=== PATIENT | female | born 1990 | race Caucasian/White ===

== ENCOUNTER 2018-11-13 04:03 | Inpatient (IN) | payer OTHER ==
[2018-11-12 11:08] LABS: Urine Appearance CLEAR; Urine Bilirubin NEGATIVE (NEG); Urine Blood NEGATIVE (NEG); Urine Color YELLOW; Urine Glucose NEGATIVE (NEG); Urine Protein NEGATIVE (NEG)
[2018-11-12 11:11] LABS: Urine Microscopic Reflex NO UMIC
[2018-11-12 11:34] LABS: Absolute Lymphocytes (CBC) 2.6 K/uL (0.7-4.9); Basophils % 0.3 % (0-1.3); Hematocrit 35.7 % (36.0-45.0); Lymphocytes % 19.6 % (15.3-44.8); RBC Red Blood Cell Count 4.19 M/uL (3.86-4.86)
[2018-11-12 23:35] LABS: RPR (Rapid Plasma Reagin) NON-REACT (NON-REACT)
[2018-11-13] MEDS ORDERED: Ringers Lactate 1,000 ML IV PRN (04:06)
[2018-11-13] MEDS ORDERED: NA CIT/CITRIC AC 30 ML ORAL UDC PO ONE (04:29)
[2018-11-13 04:56] VITALS: BMI 37.9
[2018-11-13] MEDS ORDERED: METOCLOPRAMIDE 10 MG/2mL INJ IV SCH (05:00)
[2018-11-13] MEDS ORDERED: CEFAZOLIN 2 GM in NA CHLORIDE 0.9% 100 ML IVPB SCH (05:00)
[2018-11-13] MEDS ORDERED: Ringers Lactate 1,000 ML IV SCH (05:00)
[2018-11-13] MEDS ORDERED: CEFAZOLIN/SWI 2gm 2 GM/20 ML SYR ONE ×2 (06:45→16:10)
[2018-11-13] MEDS ORDERED: METHYLERGONOVINE 0.2MG/ML AMP IM ONE (07:03)
[2018-11-13] MEDS ORDERED: CARBOPROST TROME 250 MCG/ML IM ONE (07:03)
[2018-11-13] MEDS ORDERED: MORPHINE SULFATE/PF 1 MG/ML (10 ML AMP) ONE (07:05)
[2018-11-13] MEDS ORDERED: FENTANYL CITR 250 MCG/5 ML ONE (07:06)
[2018-11-13] MEDS ORDERED: OXYTOCIN 10 UNIT/ML ML IV ONE ×2 (07:21→08:02)
[2018-11-13] MEDS ORDERED: ONDANSETRON 4 MG/2 ML VIAL ONE (07:21)
[2018-11-13] MEDS ORDERED: NS 0.9% VIAL 20 ML ONE (07:23)
[2018-11-13] MEDS ORDERED: EPHEDRINE SULF 50 MG/ML VIAL ONE ×2 (07:23→07:52)
[2018-11-13] MEDS ORDERED: ONDANSETRON 4 MG (ODT) TAB PO PRN (08:13)
[2018-11-13] MEDS ORDERED: KETOROLAC 30 MG/ML INJ IV PRN (08:13)
[2018-11-13] MEDS ORDERED: DIPHENHYDRAMINE 25 MG TAB/CAP PO PRN (08:13)
[2018-11-13] MEDS ORDERED: ACETAMINOPHEN 500 MG TAB PO PRN ×2 (08:13)
[2018-11-13] MEDS ORDERED: ONDANSETRON 4 MG/2 ML VIAL IV PRN (08:13)
[2018-11-13] MEDS ORDERED: IBUPROFEN 200 MG TAB PO PRN (08:13)
[2018-11-13] MEDS ORDERED: BISACODYL 10 MG RECTAL SUPP RECT PRN (08:13)
[2018-11-13] MEDS ORDERED: CEFAZOLIN/SWI 1gm 1 GM/10 ML SYR IV SCH (08:30)
[2018-11-13] MEDS ORDERED: OXYTOCIN/LR 20 UNIT/1,000 ML BAG IV SCH (09:00)
[2018-11-13] MEDS ORDERED: D5LR 1,000 ML with OXYTOCIN 20 UNIT IV SCH ×2 (09:00)
[2018-11-13] MEDS ORDERED: FAMOTIDINE 20 MG/2 ML VIAL IV SCH (09:00)
--- NOTE | 2018-11-13 10:28 | PREOPHP ---
Date of Admission: 11/13/2018 History Of Present Illness: This is a 28-year-old, 2, para 1, for repeat section. Infection, blood loss, anesthetic complications, injury to bladder, bowel, ureter, postoperative comp lications, clots in legs, pneumonia discussed. The patient knows fully well this does not constitute all the possible problems that could occur during or following surgery and knows with each surgery t he risk of complications is higher. Family History: Father with hypertension. Mother with gallstones. Patient had a history of seizures after her first delivery. Blood pressures have been perfect this p regnancy, but we will monitor her carefully of course. Allergies: PATIENT HAS NO ALLERGIES. Medications: She has been taking vitamins. Social History: Does not smoke. Physical Examination: HEENT: Clear. Pupils are equal, round, and reactive to light and accommodation. Conjunctivae well perfused. No oral, lingual, or buccal lesions. Chest and Lungs: Clear. Heart: Without murmurs, thrills, heaves, or rubs. Breasts: Without masses on previous visits. Abdomen: Term size. Baby is vertex. Extremities: Clear without edema, cyanosis, or clubbing. Plan: We will proceed with repeat section on Tuesday. NOAH/FREDDY Voice ID: [id number]
--- NOTE | 2018-11-13 12:25 | PN ---
Postoperatively, patient had no lochia. Cervical os is almost pinpoint. Speculum was inserted. Maame culum was placed on the anterior cervical lip and before sound could be introduced there was spontane ous bleeding coming from the uterus. The sound, dilator was used no more than 4 to 5 mm and to ensur e good flow we now have good lochia. NOAH/FREDDY Voice ID: [id number] Report ID: [id number]
--- NOTE | 2018-11-13 18:52 | OP ---
Surgeon: Shravan Bansal MD Network Account Manager: Tavon Trimble M.D. Anesthesiologist: Dr. Gray and associates. Indications: A 28-year-old 2, para 1, for repeat section. Infection, blood loss, a nesthetic complications, injury to bladder, bowel, ureter, postoperative complications in her legs, p neumonia and other complications discussed. Patient knows fully well, this does not constitute all t he possible problems that could occur during or following surgery. Anesthesia: Spinal block anesthesia. Description Of Procedure: After prepping and draping, time-out was performed. A Pfannenstiel incisi on was created. The incision was carried to the fascia. The fascia was incised and incision carried transversely bilaterally. Anterior fascial plane was developed with both blunt and sharp dissection . The underlying rectus muscle was . Peritoneal defect was seen and entered. Low transvers e bladder flap developed. Low transverse uterine incision created. An estimated 8-pound male infant , delivered through the incision without difficulties, his Apgars 9 and 9. Cord blood specimen was o btained. Placenta was removed manually. Uterus cleared of clot and blood and exteriorized. Cervica l os dilated with ring clamp. Uterus mildly hypotonic, 0.2 mg of Methergine IM. Estimated blood los s during procedure 1000 cc. Uterus clamped and closed with a running locked stitch of 1 chromic, fol lowed by a single [id number] stitch in the right angle for complete hemostasis. Gutters clear o f clot and blood. Uterus was replaced in the peritoneal cavity. Suture line checked again, no furth er bleeding. Rectus muscles approximated with 0 Dexon 3 interrupted sutures. Fascia closed with 1 P DS, running from either angle to the midline. Subcutaneous tissue closed with 2-0 plain. Absorbable tammi placed and then metal tammi. Patient tolerated all procedures well. She was given 2 g of Ancef prophylaxis prior to the beginning of the procedure. Final Diagnoses: Term intrauterine . Repeat section. Mild uterine hypotonus. NOAH/FREDDY Voice ID: [id number] Report ID: [id number]
--- NOTE | 2018-11-14 07:42 | PN ---
28-year-old underwent repeat section with delivery of 8-pound 3-ounce male . Postoper atively, afebrile, ambulating. Lochia is normal. At first, there was some difficulty with lochia. She was dilated and then we started seeing lochia. H and H with actual increase indicating probably dehydration. We will hydrate today. No complaints this morning. Full postoperative talk given. If all goes well, we will send her home tomorrow. Had mild pruritus, but no other postspinal block pro blems. Doing well at this point. NOAH/FREDDY Voice ID: [id number] Report ID: [id number]
[2018-11-14] MEDS ORDERED: MAGNESIUM HYDROXIDE 8% 30 ML PO PRN (08:13)
[2018-11-14] MEDS: Oxycodone HCl/Acetaminophen 1 TAB TAB PO PRN ×2 (08:24→19:25)
[2018-11-14] MEDS: KETOROLAC 30 MG/ML INJ IM PRN (12:13)
[2018-11-15] MEDS: KETOROLAC 30 MG/ML INJ IM PRN (01:03)
[2018-11-15] MEDS ORDERED: Ringers Lactate 2,000 ML IV ONE (07:14)
[2018-11-15 07:32] VITALS: BP 117/64; TEMP 97.9
[2018-11-15 13:19] LABS: HBsAG Nonreactive (Nonreactive)
--- NOTE | 2018-11-17 08:16 | DS ---
Date of Discharge: 11/15/2018 Hospital Course: 28-year-old 2, para 1, repeat section at 39 weeks. Delivery of an 8 pounds, 3 ounce male infant, Apgars 9 and 9. Spinal block anesthesia. Low transverse uterine inc ision. Mild uterine hypotonus, 0.2 mg of Methergine IM given. it was noted patient had m inimal lochia. She was dilated in her room and lochia begin to flow at that point and has been afia l since then. She has been afebrile, ambulating, voiding. No post spinal block problems. Patient i s dismissed this morning to report back to my office next week for staple removal to report any tempe rature elevation of 100 degrees or greater, severe pain, heavy bleeding, or any other type of abnorma lity, dismissed with tramadol for analgesia, although she may elect to take Motrin instead. Tdap has been given during her and flu shot is offered through my office if she requests since it i s not available yet in the hospital. Final Diagnoses: Term intrauterine . Repeat section at 39 weeks. Mild uterine hy pertonicity. Final block anesthesia. Cervical dilation. NOAH/FREDDY Voice ID: [id number] Report ID: [id number]
== END 2018-11-15 09:15 | disposition home or self-care (01) | DRG 788 ==
LOC: 2ND-WC 04:03
PROVIDERS: ADMIT Specialist; ATTEND Specialist
PROC: 10D00Z1 Extraction of Products of Conception, Low, Open Approach (ICD-10-PCS; principal; 2018-11-13 07:10)
DX: O62.2 Other uterine inertia (principal); Z3A.39 39 weeks gestation of pregnancy; Z37.0 Single live birth
CPT/HCPCS: 36415; 81003; 85014; 85025; 85730; 86592; 86900; 86901; 87340; 88307; J0690; J2210; J2405; J2590; J2765; J3010

== ENCOUNTER 2021-09-16 17:12 | Inpatient (IN) | payer OTHER ==
[2021-09-16 18:24] LABS: Urine Blood Negative (Negative); Urine Glucose Negative (Negative); Urine Protein 1+ (Negative); Urine pH 7.5 (5.0-7.0)
[2021-09-16 18:35] LABS: Absolute Lymphocytes (CBC) 4.5 K/uL (0.7-4.9); Hematocrit 41.6 % (36.0-45.0); MCV 81.6 fL (80-100); MPV 7.2 fL (7.6-11.3)
[2021-09-16 18:43] LABS: Albumin 3.6 g/dL (3.4-5.0); Bilirubin Total 0.8 mg/dL (0.2-1.0); Potassium 3.4 mmol/L (3.5-5.1); Protein, Total 7.9 g/dL (6.4-8.2)
[2021-09-16 19:08] LABS: Urine Bacteria >50 /HPF (<20); Urine RBC <5 /HPF (None Seen)
--- NOTE | 2021-09-16 20:07 | RAD REPORT ---
EXAM DESCRIPTION: CTAbdomen Pelvis W Contrast - 09/16/2021 7:54 pm CLINICAL HISTORY: Abdominal pain. Epigastric pain COMPARISON: No comparisons TECHNIQUE: Biphasic CT imaging of the abdomen and pelvis was performed with 100 ml non-ionic IV cont rast. All CT scans are performed using dose optimization technique as appropriate and may include automated exposure control or mA/KV adjustment according to patient size. FINDINGS: The lung bases are clear. The liver, spleen, pancreas, adrenal glands and kidneys are within normal limits. No bowel obstruction, free air, free fluid or abscess. Small fat containing umbilical hernia. The blair endix is normal. No evidence of significant lymphadenopathy. No suspicious bony findings. IMPRESSION: No acute intra-abdominal or pelvic finding.
[2021-09-16] MEDS ORDERED: ONDANSETRON 4 MG/2 ML VIAL ONE (20:12)
[2021-09-16] MEDS ORDERED: MORPHINE 4 MG/ML SYR ONE ×2 (20:12→22:57)
[2021-09-16] MEDS ORDERED: CEFTRIAXONE 1000 MG/VIAL ONE (20:59)
[2021-09-16] MEDS ORDERED: NA CHLORIDE 0.9% 50 ML ONE (20:59)
--- NOTE | 2021-09-16 21:46 | RAD REPORT ---
EXAM DESCRIPTION: US - Abdomen Exam Limited - 09/16/2021 9:40 pm CLINICAL HISTORY: abdominal pain COMPARISON: No comparisons FINDINGS: The gallbladder demonstrates stones and significant sludge. Gallbladder wall is slightly t hickened measuring arm. The common bile duct is normal measuring 4 mm. The liver demonstrates no findings of intrahepatic biliary dilatation. IMPRESSION: Gallbladder stones and sludge with mild wall thickening.
[2021-09-16] MEDS ORDERED: NA CHLORIDE 0.9% 100 ML ONE (22:25)
[2021-09-16] MEDS ORDERED: PIPERACIL/TAZO 3.375 GM VIAL IV ONE (22:25)
--- NOTE | 2021-09-16 22:43 | EDPHYS ---
Physician Documentation [facility] Name: Petrona Kam Age: 31 yrs Sex: Female : 1990 Arrival Date: 09/16/2021 Time: 17:14 Bed 20 Private MD: ED Physician Denilson Murguia HPI: 09/16 18:00 This 31 yrs old Female presents to ER via Ambulatory with complaints of Flank Pain - cp right side, Abdominal Pain - RUQ. 18:00 The patient complains of pain in the right flank. Onset: The symptoms/episode cp began/occurred today. 18:00 Associated signs and symptoms: Pertinent positives: nausea, Pertinent negatives: cp diarrhea, fever, hematuria, pain radiating to the lower extremities, vomiting. Severity of pain: in the emergency department the pain is unchanged despite home interventions. 18:00 The patient has experienced a previous episode, last year, was told gallbladder is the cp cause. Historical: - Allergies: 17:50 NKDA; bh1 - Home Meds: 17:50 propranolol 10 mg Oral tab 1 tab 3 times per day [Active]; Lexapro 10 mg Oral tab 1 tab bh1 once daily [Active]; - PMHx: 17:50 Anxiety; Depressive disorder; bh1 - PSHx: 17:51 section; bh1 - Immunization history:: Adult Immunizations up to date. - Social history:: Smoking status: Reported history of juuling and/or vaping. ROS: 18:05 Constitutional: Negative for body aches, chills, fever, poor PO intake. cp 18:05 Eyes: Negative for injury, pain, redness, and discharge. cp 18:05 ENT: Negative for drainage from ear(s), ear pain, sore throat, difficulty swallowing, difficulty handling secretions. 18:05 Cardiovascular: Negative for chest pain, edema, palpitations. 18:05 Respiratory: Negative for cough, shortness of breath, wheezing. 18:05 Abdomen/GI: Positive for abdominal pain, nausea, of the epigastric area and right upper quadrant, Negative for vomiting, diarrhea, constipation. 18:05 Back: Positive for flank pain, on the right. 18:05 : Negative for urinary symptoms. 18:05 Skin: Negative for cellulitis, rash. 18:05 Neuro: Negative for altered mental status, dizziness, headache, syncope, weakness. 18:05 All other systems are negative. Exam: 18:10 Constitutional: The patient appears in no acute distress, alert, awake, cp non-diaphoretic, non-toxic, well developed, well nourished, uncomfortable. 18:10 Head/Face: Normocephalic, atraumatic. cp 18:10 Eyes: Periorbital structures: appear normal, Conjunctiva: normal, no exudate, no injection, Sclera: no appreciated abnormality, Lids and lashes: appear normal, bilaterally. 18:10 ENT: External ear(s): are unremarkable, Nose: is normal, Mouth: Lips: moist, Oral mucosa: moist, Posterior pharynx: Airway: no evidence of obstruction, patent. 18:10 Chest/axilla: Inspection: normal. 18:10 Cardiovascular: Rate: normal, Rhythm: regular, Edema: is not appreciated, JVD: is not appreciated. 18:10 Respiratory: the patient does not display signs of respiratory distress, Respirations: normal, no use of accessory muscles, no retractions, labored breathing, is not present, Breath sounds: are clear throughout, no decreased breath sounds, no stridor, no wheezing. 18:10 Abdomen/GI: Inspection: abdomen appears normal, Bowel sounds: active, all quadrants, Palpation: soft, in all quadrants, severe abdominal tenderness, in the epigastric area and right upper quadrant, rebound tenderness, is not appreciated, voluntary guarding, is elicited in the epigastric area and right upper quadrant. 18:10 Back: CVA tenderness, is absent. 18:10 Skin: cellulitis, is not appreciated, no rash present. 18:10 Neuro: Orientation: to person, place \T\ time. Mentation: is normal, Motor: moves all fours, strength is normal, Sensation: is normal, Gait: is steady. Vital Signs: 17:48 BP 133 / 95; Pulse 82; Resp 20; Temp 98.8; Pulse Ox 97% on R/A; Weight 106.14 kg; bh1 Height 5 ft. 7 in. (170.18 cm); Pain 10/10; 22:00 BP 130 / 84; Pulse 52; Resp 18; Pulse Ox 97% on R/A; sm5 23:15 BP 134 / 98; Pulse 68; Resp 17; Pulse Ox 96% on R/A; sm5 09/17 00:43 BP 116 / 97; Pulse 48; Resp 17; Pulse Ox 97% on R/A; 5 09/16 17:48 Body Mass Index 36.65 (106.14 kg, 170.18 cm) bh1 MDM: 09/16 19:19 Patient medically screened. [facility] 22:00 Data reviewed: vital signs, nurses notes, lab test result(s), radiologic studies, CT cp scan, plain films. 22:00 Counseling: I had a detailed discussion with the patient and/or guardian regarding: the cp historical points, exam findings, and any diagnostic results supporting the discharge/admit diagnosis, lab results, radiology results, the need for further work-up and treatment in the hospital. Response to treatment: the patient's symptoms have markedly improved after treatment. Physician consultation: Gerry Lee MD was called at 21:50, was contacted at 21:50, regarding consult, patient's condition. 09/16 17:54 Order name: CBC with Diff; Complete Time: 20:45 cp 09/16 20:45 Interpretation: Normal except: WBC 11.6; RBC 5.10; MCV 81.6; PLT 412; MPV 7.2. 09/16 17:54 Order name: CMP; Complete Time: 20:45 cp 09/16 20:46 Interpretation: Normal except: K 3.4; CL 110; CO2 18; ANION GAP 15.4; GLUC 109; GFR 70; cp AST 38; GLOB 4.3; A/G 0.8. 09/16 17:54 Order name: Lipase; Complete Time: 20:45 cp 09/16 17:54 Order name: Urine Microscopic Only; Complete Time: 20:45 cp 09/16 20:46 Interpretation: Abnormal: UBACT >50. 09/16 18:24 Order name: Urine Dipstick-Ancillary; Complete Time: 20:45 EDMS 09/16 20:46 Interpretation: Normal except: UKET Trace; UPH 7.5; UPROT 1+. 09/16 18:25 Order name: Urine --Ancillary (enter results); Complete Time: 20:45 dh3 09/16 17:54 Order name: CT Abd/Pelvis - IV Contrast Only; Complete Time: 20:45 cp 09/16 19:11 Order name: Urine Culture EDCT 09/16 20:48 Order name: US Abdomen Limited: RUQ/epigastric; Complete Time: 21:50 cp 09/16 21:50 Interpretation: Report reviewed. cp 09/16 22:47 Order name: SARS RAPID sm5 09/16 17:54 Order name: IV Saline Lock; Complete Time: 18:16 cp 09/16 17:54 Order name: Labs collected and sent; Complete Time: 18:16 cp 09/16 17:54 Order name: Urine Dipstick-Ancillary (obtain specimen); Complete Time: 18:25 cp 09/16 17:54 Order name: Urine Test (obtain specimen); Complete Time: 18:25 cp 09/16 20:48 Order name: NPO; Complete Time: 20:55 cp Administered Medications: 20:10 Drug: Zofran (Ondansetron) 4 mg Route: IVP; Site: left antecubital; 5 20:10 Drug: morphine 4 mg Route: IVP; Infused Over: 4 mins; Site: left antecubital; 5 23:41 Follow up: Response: No adverse reaction; RASS: Alert and Calm (0) 5 20:56 Drug: Rocephin - (cefTRIAXone) 1 grams Route: IVPB; Infused Over: 30 mins; Site: left 5 antecubital; 21:15 Follow up: IV Status: Completed infusion; IV Intake: 50ml 5 22:25 Drug: Zosyn (piperacillin-tazobactam) 3.375 grams Route: IVPB; Infused Over: 60 mins; 5 Site: left antecubital; 23:30 Follow up: Response: No adverse reaction; IV Status: Completed infusion; IV Intake: sm5 100ml 23:00 Drug: morphine 4 mg Route: IVP; Infused Over: 4 mins; Site: left antecubital; 5 09/17 01:25 Follow up: Response: No adverse reaction; RASS: Alert and Calm (0) 5 Disposition Summary: 09/16/21 22:42 Hospitalization Ordered Hospitalization Status: Inpatient Admission cp Provider: Jesenia Terry cp Location: Telemetry/MedSurg (Inpatient) cp Condition: Stable cp Problem: new cp Symptoms: have improved cp Bed/Room Type: Standard Room Assignment: 228(09/17/21 00:22) cg Diagnosis - Acute cholecystitis cp Forms: - Medication Reconciliation Form cp - SBAR form cp Signatures: Dispatcher [employer] EDDenilson Coleman MD MD cha Page, Corey, PA PA cp Garcia, Cindy, RN RN cg Mazur, Sarah, RN RN Starla Singh RN RN [facility] Corrections: (The following items were deleted from the chart) 09/16 17:52 17:51 Social history: Smoking status: Patient denies any tobacco usage or history of. [place] [id number] 09/17 00:22 09/16 22:42 cp cg
--- NOTE | 2021-09-16 22:43 | ER ---
Nurse's Notes [facility] Name: Petrona Kam Age: 31 yrs Sex: Female : 1990 Arrival Date: 09/16/2021 Time: 17:14 Bed 20 Private MD: Diagnosis: Acute cholecystitis Presentation: 09/16 17:48 Chief complaint: Patient states: PATIENT REPORTS SEVERE AZAR IN HER RIGHT UPPER STOMACH bh1 THAT STARTED ABOUT 1 HOUR AGO. SHE ADMITS TO THIS OCCURRING LAST YEAR AND IT WAS HER GALL BLADDER. Coronavirus screen: Vaccine status: Patient reports being unvaccinated. At this time, the client does not indicate any symptoms associated with coronavirus-19. Ebola Screen: Patient negative for fever greater than or equal to 101.5 degrees Fahrenheit, and additional compatible Ebola Virus Disease symptoms. Initial Sepsis Screen: Does the patient meet any 2 criteria? No. Patient's initial sepsis screen is negative. Does the patient have a suspected source of infection? No. Patient's initial sepsis screen is negative. Risk Assessment: Do you want to hurt yourself or someone else? Patient reports no desire to harm self or others. Onset of symptoms was September 16, 2021. 17:48 Method Of Arrival: Ambulatory [facility] 17:48 Acuity: WENDY 3 1 Triage Assessment: 17:51 General: Appears in no apparent distress. Behavior is calm, cooperative, appropriate bh1 for age. General: Appears uncomfortable. Pain: Complains of pain in right upper quadrant. GI: No deficits noted. Historical: - Allergies: 17:50 NKDA; 1 - Home Meds: 17:50 propranolol 10 mg Oral tab 1 tab 3 times per day [Active]; Lexapro 10 mg Oral tab 1 tab bh1 once daily [Active]; - PMHx: 17:50 Anxiety; Depressive disorder; 1 - PSHx: 17:51 section; 1 - Immunization history:: Adult Immunizations up to date. - Social history:: Smoking status: Reported history of juuling and/or vaping. Screenin:39 Abuse screen: Denies threats or abuse. Denies injuries from another. Nutritional sm5 screening: No deficits noted. Tuberculosis screening: No symptoms or risk factors identified. Fall Risk None identified. Assessment: 20:15 General: Appears in no apparent distress. Behavior is cooperative. Pain: Complains of sm5 pain in right upper quadrant. Neuro: Level of Consciousness is awake, alert, obeys commands, Oriented to person, place, time, situation. Cardiovascular: Capillary refill < 3 seconds Patient's skin is warm and dry. Respiratory: Airway is patent Trachea midline Respiratory effort is even, unlabored. GI: Bowel sounds present X 4 quads. Abd is soft Reports upper abdominal pain. 22:00 Reassessment: No changes from previously documented assessment. Patient and/or family 5 updated on plan of care and expected duration. Pain level reassessed. 09/17 00:43 Reassessment: No changes from previously documented assessment. Patient is alert, sm5 oriented x 3, equal unlabored respirations, skin warm/dry/pink. Vital Signs: 09/16 17:48 BP 133 / 95; Pulse 82; Resp 20; Temp 98.8; Pulse Ox 97% on R/A; Weight 106.14 kg; 1 Height 5 ft. 7 in. (170.18 cm); Pain 10/10; 22:00 BP 130 / 84; Pulse 52; Resp 18; Pulse Ox 97% on R/A; sm5 23:15 BP 134 / 98; Pulse 68; Resp 17; Pulse Ox 96% on R/A; sm5 09/17 00:43 BP 116 / 97; Pulse 48; Resp 17; Pulse Ox 97% on R/A; sm5 09/16 17:48 Body Mass Index 36.65 (106.14 kg, 170.18 cm) [facility] ED Course: 09/16 17:14 Patient arrived in ED. am2 17:20 Denilson Avendano PA is PHCP. cp 17:20 Denilson Murguia MD is Attending Physician. cp 17:50 Triage completed. 1 17:52 Arm band placed on left wrist. 1 18:14 Initial lab(s) drawn, by me, sent to lab. Inserted saline lock: 20 gauge in left dh3 antecubital area, using aseptic technique. Blood collected. 19:45 Kellen Patel, AMBERLY is Primary Nurse. 5 19:56 CT Abd/Pelvis - IV Contrast Only In Process Unspecified. EDMS 21:43 US Abdomen Limited: RUQ/epigastric In Process Unspecified. EDMS 22:42 Jesenia Terry PA is Hospitalizing Provider. cp 23:40 Patient has correct armband on for positive identification. Bed in low position. Call 5 light in reach. Side rails up X2. 23:40 No provider procedures requiring assistance completed. 5 09/17 01:24 Patient admitted, IV remains in place. 5 Administered Medications: 09/16 20:10 Drug: Zofran (Ondansetron) 4 mg Route: IVP; Site: left antecubital; 5 20:10 Drug: morphine 4 mg Route: IVP; Infused Over: 4 mins; Site: left antecubital; 5 23:41 Follow up: Response: No adverse reaction; RASS: Alert and Calm (0) [facility] 20:56 Drug: Rocephin - (cefTRIAXone) 1 grams Route: IVPB; Infused Over: 30 mins; Site: left 5 antecubital; 21:15 Follow up: IV Status: Completed infusion; IV Intake: 50ml 5 22:25 Drug: Zosyn (piperacillin-tazobactam) 3.375 grams Route: IVPB; Infused Over: 60 mins; 5 Site: left antecubital; 23:30 Follow up: Response: No adverse reaction; IV Status: Completed infusion; IV Intake: sm5 100ml 23:00 Drug: morphine 4 mg Route: IVP; Infused Over: 4 mins; Site: left antecubital; 5 09/17 01:25 Follow up: Response: No adverse reaction; RASS: Alert and Calm (0) [facility] Medication: 09/16 23:39 VIS not applicable for this client. 5 Intake: 21:15 IV: 50ml; Total: 50ml. 5 23:30 IV: 100ml; Total: 150ml. 5 Outcome: 22:42 Decision to Hospitalize by Provider. cp 09/17 01:24 Admitted to Med/surg accompanied by tech, via wheelchair, with chart. 5 Condition: stable Instructed on the need for admit. 01:25 Patient left the ED. 5 Signatures: Dispatcher [employer] EDMS Denilson Avendano PA PA cp Rosa Horta Deanna 3 Kellen Patel RN RN 5 Starla Caputo RN RN 1 Corrections: (The following items were deleted from the chart) 09/16 17:52 17:51 Social history: Smoking status: Patient denies any tobacco usage or history of. 1 bh1
--- NOTE | 2021-09-16 23:14 | P.HP ---
Certification for Inpatient Patient admitted to: Inpatient With expected LOS: <2 Midnights Patient will require the following post-hospital care: None Practitioner: I am a practitioner with admitting privileges, knowledge of patient current condition, hospital course, and medical plan of care. Services: Services provided to patient in accordance with Admission requirements found in Title 42 Section 412.3 of the Code of Federal Regulations Patient History Date of Service: 09/16/21 Reason for admission: Cholecystitis History of Present Illness: Patient is a 31-year-old female with no chronic medical problems who presented to the ED with complaints of right upper quadrant pain. She states that the pain initially began 3 days ago but subsided with rest then returned today. She states the pain is associated with nausea, vomiting, and decreased appetite. Patient reports similar symptoms about 1 year ago which was evaluated via ultrasound and she was noted to have gallstones and sludge but no infection. Today in the ED, her labs are significant for WBC 11.6, potassium 3.4, AST 38. RUQ ultrasound showed gallstones and sludge with mild wall thickening. Vital signs stable. General surgery was contacted and wishes for patient to be admitted to hospitalist and to receive antibiotics for 24 hours and he plans to operate on Tuesday morning. She was started on Zosyn in the ED and is admitted for further evaluation and treatment. Allergies No Known Allergies Allergy (Unverified 11/13/18 08:20) Home Medications: 95/Iron Fum/Folic/Dha [ + Dha Combo Pack] 1 each PO DAILY 11/13/18 Tramadol HCl [Ultram] 50 mg PO Q6HR #30 tablet 11/15/18 - Past Medical/Surgical History Diabetic: No -: Depression -: Anxiety -: section 2008 Psychosocial/ Personal History: Patient is . - Family History Family History: Reviewed- Non-Contributory - Social History Smoking Status: Current some day smoker (vapes) Alcohol use: No CD- Drugs: No Caffeine use: Yes Place of Residence: Home Review of Systems Gastrointestinal: Nausea, Vomiting, Abdominal Pain Physical Examination - Physical Exam General: Alert, In no apparent distress HEENT: Atraumatic, PERRLA, EOMI, Sclerae nonicteric Neck: Supple, 2+ carotid pulse no bruit, No LAD, Without JVD or thyroid abnormality Respiratory: Clear to auscultation bilaterally, Normal air movement Cardiovascular: Regular rate/rhythm, Normal S1 S2 Gastrointestinal: Normal bowel sounds, No tenderness Musculoskeletal: No tenderness Integumentary: No rashes Neurological: Normal speech, Normal strength at 5/5 x4 extr, Normal tone, Normal affect - Studies Laboratory Data (last 24 hrs) 09/16/21 18:14: Sodium 140, Potassium 3.4 L, BUN 10, Creatinine 1.07, Glucose 109 H, Total Bilirubin 0.8, AST 38 H, ALT 53, Alkaline Phosphatase 61, Lipase 106 09/16/21 18:14: WBC 11.6 H, Hgb 14.1, Hct 41.6, Plt Count 412 H Assessment and Plan - Problems (Diagnosis) (1) Acute cholecystitis Current Visit: Yes Status: Acute (2) Hypokalemia Current Visit: Yes Status: Acute (3) UTI (urinary tract infection) Current Visit: Yes Status: Acute Qualifiers: Urinary tract infection type: acute cystitis Hematuria presence: without hematuria Qualified Code(s): N30.00 - Acute cystitis without hematuria - Plan -Continue IV zosyn and LR -Morphine and zofran as needed -Diet as tolerated for now. NPO 09/18 at [facility] -General surgery planning to operate Tuesday morning -Monitor and replete electrolytes per protocol -Lovenox for VTE ppx -Full code Discharge Plan: Home Plan to discharge in: 48 Hours - Advance Directives Does patient have a Living Will: No Does patient have a Durable POA for Healthcare: No - Code Status/Comfort Care Code Status Assessed: Yes (Full) Critical Care: No Time Spent Managing Pts Care (In Minutes): 50
[2021-09-16 23:24] LABS: SARS-CoV-2 Antigen Rapid Res Negative (Negative)
[2021-09-17] MEDS ORDERED: ACETAMINOPHEN 500 MG TAB PO PRN (00:59)
[2021-09-17 01:31] VITALS: BMI 35.6
[2021-09-17] MEDS: ONDANSETRON 4 MG/2 ML VIAL IV PRN ×3 (01:52→22:50)
[2021-09-17 04:11] LABS: Absolute Lymphocytes (CBC) 3.4 K/uL (0.7-4.9); Lymphocytes % 29.6 % (15.3-44.8); MPV 7.3 fL (7.6-11.3); RBC Red Blood Cell Count 4.34 M/uL (3.86-4.86)
[2021-09-17 04:40] LABS: Albumin 3.2 g/dL (3.4-5.0); Bilirubin Total 0.8 mg/dL (0.2-1.0); Magnesium 1.9 mg/dL (1.8-2.4); Protein, Total 6.7 g/dL (6.4-8.2); Thyroid Stimulating Hormone 2.55 uIU/mL (0.360-3.740)
[2021-09-17] MEDS ORDERED: POTASSIUM 25 MEQ EFFERV TAB PO ONE (06:00)
[2021-09-17] MEDS: ENOXAPARIN 40 MG/0.4 ML SQ SCH (09:07)
[2021-09-17] MEDS: PIPER TAZO 3.375 GM in NA CHLORIDE 0.9% 100 ML IV SCH ×2 (09:07→17:25)
[2021-09-17 12:23] LABS: Potassium 3.5 mmol/L (3.5-5.1)
[2021-09-17] MEDS ORDERED: POTASSIUM CL SA 10 MEQ TAB PO ONE (12:42)
--- NOTE | 2021-09-17 13:48 | P.PN ---
Subjective Date of Service: 09/17/21 Chief Complaint: Cholecystitis Subjective: Improving (Patient is improving still complaining of right upper quadrant pain pending surgical eval) Review of Systems Unremarkable Physical Examination - Vital Signs Temperature: 97.7 F Blood Pressure: 131/61 Pulse: 57 Respirations: 16 Pulse Ox (%): 97 - Physical Exam General: Alert, In no apparent distress, Oriented x3 Respiratory: Clear to auscultation bilaterally Cardiovascular: No edema Gastrointestinal: Normal bowel sounds, Tenderness (Mild tenderness in the right upper quadrant) Musculoskeletal: No clubbing, No swelling - Studies Laboratory Data (last 24 hrs) 09/16/21 18:14: Sodium 140, Potassium 3.4 L, BUN 10, Creatinine 1.07, Glucose 109 H, Total Bilirubin 0.8, AST 38 H, ALT 53, Alkaline Phosphatase 61, Lipase 106 09/16/21 18:14: WBC 11.6 H, Hgb 14.1, Hct 41.6, Plt Count 412 H Assessment And Plan - Current Problems (Diagnosis) (1) Acute cholecystitis Current Visit: Yes Status: Acute Plan: Patient is 31 years of age admitted with right upper quadrant pain pain is recurrent admitted with acute cholecystitis awaiting surgical evaluation patient appears to be comfortable continue with Unasyn White count is stable
[2021-09-18] MEDS: PIPER TAZO 3.375 GM in NA CHLORIDE 0.9% 100 ML IV SCH ×3 (00:33→16:45)
[2021-09-18] MEDS: MORPHINE 4 MG/ML SYR IV PRN ×3 (03:36→20:13)
[2021-09-18 04:19] LABS: Absolute Lymphocytes (CBC) 3.5 K/uL (0.7-4.9); Lymphocytes % 33.9 % (15.3-44.8); MCV 82.3 fL (80-100); MPV 7.3 fL (7.6-11.3); RBC Red Blood Cell Count 4.62 M/uL (3.86-4.86)
[2021-09-18 04:30] LABS: Albumin 3.4 g/dL (3.4-5.0); Bilirubin Total 1.6 mg/dL (0.2-1.0); Magnesium 2.2 mg/dL (1.8-2.4); Potassium 3.4 mmol/L (3.5-5.1); Protein, Total 7.1 g/dL (6.4-8.2)
[2021-09-18] MEDS: KCL 20 MEQ/100 mL IVPB 20 MEQ/100 ML BAG IV SCH ×2 (07:44→10:40)
[2021-09-18] MEDS: ONDANSETRON 4 MG/2 ML VIAL IV PRN ×3 (07:44→20:13)
[2021-09-18] MEDS: ENOXAPARIN 40 MG/0.4 ML SQ SCH (07:45)
[2021-09-18] MEDS ORDERED: NA CHLORIDE 0.9% 1,000 ML ONE (09:36)
--- NOTE | 2021-09-18 10:08 | P.CNS ---
Date of Consult: 09/17/21 Reason for Consult: acut cholecystitis, sympt cholelithiasis Chief Complaint: Cholecystitis History of Present Illness: Recurrent RUQ apin radiating to the back, post prandial Allergies No Known Allergies Allergy (Verified 09/17/21 01:32) Home Medications: Escitalopram [Lexapro*] 20 mg PO DAILY 09/17/21 Propranolol HCl 20 mg PO DAILY 09/17/21 - Past Medical/Surgical History Diabetic: No -: Depression -: Anxiety -: section 2008 Psychosocial/ Personal History: Patient is . - Family History Mother Notes: gallbladder out - Social History Alcohol use: No CD- Drugs: No Caffeine use: Yes Place of Residence: Home Review of Systems General: Unremarkable Respiratory: Unremarkable Cardiovascular: Unremarkable Gastrointestinal: Nausea, Vomiting, Abdominal Pain Genitourinary: Unremarkable Integumentary: Unremarkable Neurological: Unremarkable Physical Examination Temp Pulse Resp BP Pulse Ox 98.1 F 69 18 142/86 H 100 09/18/21 08:00 09/18/21 08:00 09/18/21 08:00 09/18/21 08:00 09/18/21 08:00 General: Alert, Oriented x3 HEENT: PERRLA, EOMI Neck: Supple Respiratory: Normal air movement Cardiovascular: No edema Gastrointestinal: No guarding, Tenderness (RUQ) Musculoskeletal: No erythema Integumentary: No rashes, No breakdown, No erythema Neurological: Normal speech Conclusions/Impression: BAR of Laparoscopic possible open cholecystectomy fully explained including but not limited to infection, bleedig damage to adjacent structures, choledocholithiasis, bile leak, pancreatitis HI even .
[2021-09-18] MEDS ORDERED: NA CHLORIDE 0.9% 250 ML ONE (11:49)
[2021-09-18] MEDS ORDERED: Ringers Lactate 1,000 ML IV ONE ×2 (12:17→14:14)
[2021-09-18] MEDS ORDERED: dexAMETHasone 10 MG/ML VIAL ONE (12:32)
[2021-09-18] MEDS ORDERED: ROCURONIUM 50 MG/5 ML VIAL IV ONE (12:32)
[2021-09-18] MEDS ORDERED: ONDANSETRON 4 MG/2 ML VIAL ONE ×2 (12:32→14:09)
[2021-09-18] MEDS ORDERED: LIDOCAINE 2% MPF 5 ML VIAL ONE (12:32)
[2021-09-18] MEDS ORDERED: MIDAZOLAM HCL 2 MG/2 ML INJ ONE (12:32)
[2021-09-18] MEDS ORDERED: FENTANYL CITR 100 MCG/2 ML ONE ×2 (12:32→14:13)
[2021-09-18] MEDS ORDERED: KETOROLAC 30 MG/ML INJ ONE (12:32)
[2021-09-18] MEDS ORDERED: propofoL 200 MG/20 ML VIAL IV ONE (12:32)
[2021-09-18] MEDS ORDERED: SCOPOLAMINE HYDROBROMIDE PATCH TD ONE (12:35)
--- NOTE | 2021-09-18 12:47 | P.PN ---
Subjective Date of Service: 09/18/21 Chief Complaint: Cholecystitis Subjective: Improving (Still complaining of right upper quadrant pain scheduled for cholecystectomy) Review of Systems Gastrointestinal: Nausea, Abdominal Pain Physical Examination - Vital Signs Temperature: 98.1 F Blood Pressure: 142/86 Pulse: 69 Respirations: 18 Pulse Ox (%): 100 - Physical Exam General: Alert, In no apparent distress, Mild distress Respiratory: Clear to auscultation bilaterally Gastrointestinal: Tenderness (In the right upper quadrant) Assessment And Plan - Current Problems (Diagnosis) (1) Acute cholecystitis Current Visit: Yes Status: Acute Plan: Patient 31 years of age admitted with acute cholecystitis scheduled for cholecystectomy today labs reviewed white count is normal vital signs stable continue with present therapy
--- NOTE | 2021-09-18 13:35 | P.BOP ---
Preoperative diagnosis: acute cholecystitis, symptomatic cholelithiasis, RUQ abd pain Postoperative diagnosis: same, umbilical hernia Primary procedure: 1. Laparoscopic cholecystectomy Secondary procedure: 2. open umbilical hernia repair Sewer Repairer: Saniya Calvin) Estimated blood loss: <10cc Specimen: GB Findings: inflammed distended gallbladder Anesthesia: General Complications: None Drain(s): MCKINLEY drain Transferred to: Recovery Room Condition: Good
[2021-09-18] MEDS ORDERED: GLYCOPYRROLATE 0.2 MG/ML SYR ONE (13:36)
[2021-09-18] MEDS ORDERED: MORPHINE 10 MG/ML VIAL ONE (13:36)
[2021-09-18] MEDS ORDERED: NEOSTIGMINE 1 MG/ML -10 ML VIAL ONE (13:42)
[2021-09-18] MEDS ORDERED: Mastisol Adhesive Liq ONE (13:43)
[2021-09-18] MEDS: HYDROMORPHONE HCL 1 MG/ML INJ ONE ×2 (14:02→14:08)
[2021-09-18] MEDS: MEPERIDINE HCL 25 MG/ML SYR ONE ×2 (14:13→14:18)
[2021-09-18] MEDS: HYDROCODONE/APAP 5/325 MG TAB PO PRN (16:19)
[2021-09-19] MEDS: PIPER TAZO 3.375 GM in NA CHLORIDE 0.9% 100 ML IV SCH ×2 (01:15→09:03)
--- NOTE | 2021-09-19 02:54 | OP ---
Date of Procedure: 09/18/2021 Surgeon: Gerry Lee MD Simulation Technician: Saniya Glynn. Preoperative Diagnoses: Acute cholecystitis; symptomatic cholelithiasis; right upper quadrant abdomi nal pain, intractable. Postoperative Diagnoses: Acute cholecystitis; symptomatic cholelithiasis; right upper quadrant abdom inal pain, intractable; umbilical hernia. Procedures: 1.Laparoscopic cholecystectomy. 2.Open repair of umbilical hernia. Estimated Blood Loss: Less than 10 cc. Specimen: Gallbladder. Findings: Inflamed distended gallbladder. Anesthesia: General plus local. Complications: None. Drains: MCKINLEY #10. Indication: This is the case of a 31-year-old patient, who came to us with above diagnoses. Fully e xplained the benefits, alternatives, and risks of laparoscopic possible open cholecystectomy, which i nclude, but not limited to infection, bleeding, damage to adjacent structures, anesthesia complicatio n, choledocholithiasis, bile leak, pancreatitis, [place], and . She also understands this may not re lieve any symptoms. She might need more than one surgical intervention. She understood and signed a consent. Procedure In Detail: The patient was brought to the operating room, placed in supine position. Anes thesia was done without complication. Abdominal area was prepped and draped in the usual sterile fas hion. Marcaine 0.5% was injected for local anesthetic, followed by sharp incision of the skin in the infraumbilical region. Incision was carried down to fascia, which was opened under direct vision. Peritoneum was encountered, opened under direct vision. Vicryl #1 placed inside the fascia. Aaron trocar was carefully introduced. But before doing that, we noticed the patient to have an umbilical hernia, so we have to remove her umbilical hernia sac, clean the fascia edges, and incorporated that into our incision. We put a Aaron trocar after Vicryl #1, placed inside of the fascia. Pneumoperit oneum was obtained. After that, I placed 3 more trocars, 5 mm each one of them, 1 in the epigastric area, 2 in the right upper quadrant using same technique, which consisted of local anesthetic and sha rp incision of the skin, introduction of the trocars under direct vision. This allowed me to visuali ze the area of the gallbladder. It looks like it is a distended gallbladder, thick multiple adhesion s of omentum into the gallbladder, so carefully we proceeded to place a grasper in the fundus of the gallbladder, then take the adhesions down carefully with the help of Endo Heidi until we have the in fundibulum and then the infundibulum and the gallbladder was retracted in the inferolateral fashion e xposing the triangle of Calot, obtaining critical view. Carefully the cystic duct and cystic artery were clearly identified circumferentially and a connection between those and the gallbladder was iden tified. I proceeded to ligate those by using at least 3 clips proximal, 1 clip distal, ligation in t he middle. Same was done with the cystic artery. No bile leak. No bleeding. The gallbladder was r emoved from liver using Bovie cauterizer and removed from abdominal cavity using EndoCatch through th e umbilical incision. The area was inspected once again. No bile leak, no bleeding, with a lot of i nflammatory process in that area. So I preferred to leave a MCKINLEY drain in that region exiting through 1 of the trocar site and secured that in place with 3-0 nylon. The area was inspected once again, ev en the adhesions that were removed with no bleeding. At that moment, I proceeded to remove the troca rs under direct vision. Deflated the pneumoperitoneum. Closed the fascia with #1 Vicryl. Irrigated the subcutaneous tissue, closed that with 3-0 chromic and skin with subcuticular fashion. MCKINLEY was connected to bulb suction. Sponge count and inst rument counts correct. PIEDAD/LEVYL Voice ID: [id number] Report ID: [id number]
[2021-09-19] MEDS: MORPHINE 4 MG/ML SYR IV PRN ×2 (04:49→09:04)
[2021-09-19] MEDS: HYDROCODONE/APAP 5/325 MG TAB PO PRN (06:22)
[2021-09-19] MEDS: ONDANSETRON 4 MG/2 ML VIAL IV PRN (09:04)
[2021-09-19] MEDS: ENOXAPARIN 40 MG/0.4 ML SQ SCH (09:05)
[2021-09-19 12:26] VITALS: O2SAT 97
[2021-09-19 12:52] VITALS: BP 105/51; TEMP 97.4
--- NOTE | 2021-09-19 13:54 | P.DS ---
Discharge Date: 09/19/21 Disposition: ROUTINE DISCHARGE Discharge Condition: GOOD Reason for Admission: Cholecystitis Brief History of Present Illness: Patient is a 31-year-old female with no chronic medical problems who presented to the ED with complaints of right upper quadrant pain. She states that the pain initially began 3 days ago but subsided with rest then returned today. She states the pain is associated with nausea, vomiting, and decreased appetite. Patient reports similar symptoms about 1 year ago which was evaluated via ultrasound and she was noted to have gallstones and sludge but no infection. Today in the ED, her labs are significant for WBC 11.6, potassium 3.4, AST 38. RUQ ultrasound showed gallstones and sludge with mild wall thickening. Vital signs stable. General surgery was contacted and wishes for patient to be admitted to hospitalist and to receive antibiotics for 24 hours and he plans to operate on Tuesday morning. She was started on Zosyn in the ED and is admitted for further evaluation and treatment. Vital Signs/Physical Exam: Temp Pulse Resp BP Pulse Ox 97.4 F 77 16 105/51 L 98 09/19/21 12:00 09/19/21 12:00 09/19/21 12:00 09/19/21 12:00 09/19/21 12:00 Laboratory Data at Discharge: WBC 10.2 K/uL (4.3-10.9) 09/18/21 03:49 Hgb 13.4 g/dL (12.0-15.0) 09/18/21 03:49 Hct 38.0 % (36.0-45.0) 09/18/21 03:49 Plt Count 343 K/uL (152-406) 09/18/21 03:49 Sodium 140 mmol/L (136-145) 09/18/21 03:49 Potassium 4.2 mmol/L (3.5-5.1) 09/18/21 20:46 BUN 5 mg/dL (7-18) L 09/18/21 03:49 Creatinine 0.93 mg/dL (0.55-1.3) 09/18/21 03:49 Glucose 90 mg/dL (74-106) 09/18/21 03:49 Magnesium 2.2 mg/dL (1.8-2.4) 09/18/21 03:49 Total Bilirubin 1.6 mg/dL (0.2-1.0) H 09/18/21 03:49 AST 27 U/L (15-37) 09/18/21 03:49 ALT 47 U/L (12-78) 09/18/21 03:49 Alkaline Phosphatase 57 U/L (45-117) 09/18/21 03:49 Lipase 106 U/L (73-393) 09/16/21 18:14 Home Medications: Escitalopram [Lexapro*] 20 mg PO DAILY 09/17/21 Propranolol HCl 20 mg PO DAILY 09/17/21 Hydrocodone Bit/Acetaminophen [Hydrocodon-Acetaminophen 5-325] 1 each PO Q4H PRN #20 09/18/21 Sulfamethoxazole/Trimethoprim [Bactrim Ds Tablet] 1 each PO BID #10 09/18/21 New Medications: Sulfamethoxazole/Trimethoprim [Bactrim Ds Tablet] 1 each PO BID #10 Hydrocodone Bit/Acetaminophen [Hydrocodon-Acetaminophen 5-325] 1 each PO Q4H PRN #20 PRN Reason: Pain Scale 5-7 (Moderate) Physician Discharge Instructions: Prescriptions for bactrim and hydrocodone already called at [facility] KEep surgical area dry and clean until next doctor visit. MCKINLEY to bulb suction OK TO DC IV AND DC HOME FOLLOW-UP WITH PRIMARY CARE PROVIDER IN 1-2 WEEKS FOLLOW-UP WITH Surgery IN 1-2 WEEKS RETURN TO THE ER IF SYMPTOMS WORSENS CALL DR. ATKINS AT [phone] IF ANY QUESTIONS REGARDING HOSPITAL STAY. PLEASE CALL THE FLOOR AT [phone] IF ANY MEDICATION OR NURSING QUESTIONS. Diet: Regular Activity: No lifting more than 10 lbs Followup: Gerry Lee MD [ACTIVE - CAN ADMIT] - 1 Week (Call to schedule appointment)
== END 2021-09-19 14:37 | disposition home or self-care (01) | DRG 418 ==
LOC: ER 17:12 → ERHOLD 23:28 → 2ND 09-17 00:49
PROVIDERS: ADMIT Internal Medicine Nephrology; ATTEND Internal Medicine Sleep Medicine
PROC: 0WQF0ZZ Repair Abdominal Wall, Open Approach (ICD-10-PCS; 2021-09-18)
PROC: 0FT44ZZ Resection of Gallbladder, Percutaneous Endoscopic Approach (ICD-10-PCS; principal; 2021-09-18 12:30)
DX: K80.00 Calculus of gallbladder with acute cholecystitis without obstruction (principal); N30.00 Acute cystitis without hematuria; K42.9 Umbilical hernia without obstruction or gangrene; E87.6 Hypokalemia; F32.A Depression, unspecified; F41.9 Anxiety disorder, unspecified; F17.290 Nicotine dependence, other tobacco product, uncomplicated; Z20.822 Contact with and (suspected) exposure to COVID-19
CPT/HCPCS: 36415; 74177; 76705; 80048; 80053; 81003; 81015; 81025; 83690; 83735; 84132; 84443; 85025; 87086; 87088; 87811; 88302; 88304; 94010; 96365; 96367; 96375; 99285; J1100; J1170; J1650; J2175; J2250; J2405; J2543; J2704; J2710; J3010; J3480; J7030; J7050; J7120; Q9967

== ENCOUNTER 2024-05-14 07:42 | Emergency (ER) | payer SELFPAY ==
[2024-05-14] MEDS ORDERED: LORazepam 2 MG/ML VIAL ONE (08:42)
[2024-05-14] MEDS ORDERED: hydrOXYzine HCL 25 MG TAB ONE (08:42)
[2024-05-14] MEDS ORDERED: NA CHLORIDE 0.9% 1,000 ML ONE (08:43)
--- NOTE | 2024-05-14 08:46 | RAD REPORT ---
Procedure: Chest Single View HISTORY: Chest pain COMPARISON: none FINDINGS: The lungs appear clear of acute infiltrate. No significant pleural effusion noted. The heart is normal size. IMPRESSION: No acute abnormality is displayed.
[2024-05-14 08:57] LABS: Absolute Basophils 0.1 K/uL (0-0.5); Absolute Eosinophils 0.1 K/uL (0-0.5); Absolute Lymphocytes (CBC) 2.5 K/uL (0.7-4.9); Absolute Monocytes 1.2 K/uL (0.1-1.3); Absolute Neutrophil 12.6 K/uL (1.8-8.0); Basophils % 0.5 % (0-1.3); Eosinophils % 0.6 % (0-4.4); Hematocrit 45.1 % (36.0-45.0); Hemoglobin 15.7 g/dL (12.0-15.0); MCH 29.2 pg (27.0-35.0); MCHC 34.8 g/dL (32.0-36.0); MCV 84.1 fL (80-100); MPV 7.1 fL (7.6-11.3); Monocytes % 7.4 % (3.3-12.3); Neutrophils % 76.5 % (41.7-73.7); Nucleated Red Blood Cells % 0.1 % (0-0); Platelets 389 thou/uL (152-406); RBC Red Blood Cell Count 5.36 M/uL (3.86-4.86); Red Cell Distribution Width 14.1 % (12.1-15.2)
[2024-05-14 09:14] LABS: Anion Gap 12.6 mEq/L (5.0-15.0); BUN Blood Urea Nitrogen 15 mg/dL (7-18); Bicarbonate 21 mEq/L (21-32); Glomerular Filtration Rate 96 ml/min (=/>90); Glucose Level 95 mg/dL (74-106); Potassium 3.6 mEq/L (3.5-5.1); Sodium Level 136 mEq/L (136-145)
[2024-05-14 09:15] LABS: Troponin High Sensitivity < 3.0 pg/mL (<58.9)
--- NOTE | 2024-05-14 09:17 | EDPHYS ---
Physician Documentation [facility] Name: Petrona Kam Age: 33 yrs Sex: Female : 1990 Arrival Date: 05/14/2024 Time: 07:42 Bed 2 Private MD: ED Physician Nadeem Arnold HPI: 05/14 08:45 This 33 yrs old Female presents to ER via Ambulatory with complaints of Panic dr5 Attacks, Chest Tightness, Nausea/Vomiting. 08:45 Onset: The symptoms/episode began/occurred acutely. Patient is a 33-year-old female dr5 with history of depression and anxiety coming in with feeling of anxiety for the past 4 days. Patient reports intermittent chest tightness when she has panic attack and heavy breathing. Patient states that she is on Seroquel and BuSpar which is not helping her symptoms. Patient denies chest pain at this time. Historical: - Allergies: 08:02 Hydrocodone-Acetaminophen; iw - PMHx: 08:02 depressive disorder; Anxiety; iw - PSHx: 08:02 section; iw 08:03 Cholecystectomy; iw - Immunization history:: Adult Immunizations not up to date. - Infectious Disease History:: Denies. - Social history:: Smoking status: Patient uses weed vape. ROS: 08:45 Constitutional: as per hpi dr5 Exam: 08:45 Constitutional: This is a well developed, well nourished patient who is awake, alert, dr5 and in no acute distress. Head/Face: Normocephalic, atraumatic. ENT: Nares patent. No nasal discharge, no septal abnormalities noted. Tympanic membranes are normal and external auditory canals are clear. Oropharynx with no redness, swelling, or masses, exudates, or evidence of obstruction, uvula midline. Mucous membranes moist. Neck: Trachea midline, no thyromegaly or masses palpated, and no cervical lymphadenopathy. Supple, full range of motion without nuchal rigidity, or vertebral point tenderness. No Meningismus. Chest/axilla: Normal chest wall appearance and motion. Nontender with no deformity. No lesions are appreciated. Cardiovascular: Regular rate and rhythm with a normal S1 and S2. Normal PMI, no JVD. No pulse deficits. Respiratory: Lungs have equal breath sounds bilaterally, clear to auscultation. No rales, rhonchi or wheezes noted. No increased work of breathing, no retractions or nasal flaring. Back: No spinal tenderness. No costovertebral tenderness. Full range of motion. Skin: Warm, dry with normal turgor. Normal color with no rashes, no lesions, and no evidence of cellulitis. Neuro: Awake and alert, GCS 15, oriented to person, place, time, and situation. Cranial nerves II-XII grossly intact. Motor strength 5/5 in all extremities. Sensory grossly intact. Cerebellar exam normal. Normal gait. Vital Signs: 08:03 BP 130 / 104; Pulse 96; Resp 16; Temp 98; Pulse Ox 98% on R/A; Weight 102.51 kg; Height iw 5 ft. 7 in. ; Pain 5/10; 09:40 BP 128 / 99; Pulse 88; Resp 16 S; Pulse Ox 100% on R/A; aa5 08:03 Body Mass Index 35.40 (102.51 kg, 170.18 cm) iw 08:03 Pain Scale: Adult iw MDM: 08:00 Medical Screening Exam initiated dr5 09:19 Differential diagnosis: viral Infection, Panic Attack, Electrolyte Abnormality, ACS. dr5 Data reviewed: vital signs, nurses notes, lab test result(s). Care significantly affected by the following chronic conditions: Depression, Anxiety. Care significantly affected by the following Social Determinants of Health: Poor access to healthcare and/or lack of insurance, Poor access to transportation, Problems related to employment. Medication response: Hydroxyzine, Ativan. Response to treatment: the patient's symptoms have resolved after treatment, the patient's condition has returned to base line. ED course: Patient reports that she is feeling much better and for the first time able to concentrate. Patient is seen by [facility] and will make appointment this week as recommended by me to have medications possibly adjusted. Will send patient hydroxyzine for breakthrough panic attacks. Patient does not have symptoms at discharge and is feeling much better. All questions answered and strict ER precautions given. 05/14 08:16 Order name: Basic Metabolic Panel; Complete Time: 09:15 dr5 05/14 08:16 Order name: CBC with Diff; Complete Time: 09:05 dr5 05/14 08:16 Order name: Troponin HS; Complete Time: 09:15 dr5 05/14 08:16 Order name: XRAY Chest (1 view); Complete Time: 08:51 dr5 05/14 08:16 Order name: Cardiac monitoring; Complete Time: 08:49 [facility] 05/14 08:16 Order name: EKG - Nurse/Tech; Complete Time: 08:24 [facility] 05/14 08:16 Order name: IV Saline Lock; Complete Time: 08:49 [facility] 05/14 08:16 Order name: Labs collected and sent; Complete Time: 08: [facility] 05/14 08:16 Order name: O2 Per Protocol; Complete Time: 08: [facility] 05/14 08:16 Order name: O2 Sat Monitoring; Complete Time: 08:21 dr5 Administered Medications: 08:48 Drug: NS 0.9% IV 1000 ml IV at 1000 ml once; to be given as a bolus over 60 minutes bp Route: IV; Rate: 1000 ml; Site: left antecubital; 09:48 Follow up: IV Status: Completed infusion; IV Intake: 1000ml aa5 08:48 Drug: Ativan IVP 0.5 mg IVP once Route: IVP; Site: left antecubital; bp 09:00 Follow up: Response: No adverse reaction aa5 08:48 Drug: hydrOXYzine PO 25 mg PO once Route: PO; bp 09:00 Follow up: Response: No adverse reaction aa5 Disposition Summary: 05/14/24 09:16 Discharge Ordered Notes: Location: Home dr5 Condition: Stable dr5 Diagnosis - Anxiety disorder, unspecified dr5 Followup: dr5 - With: Emergency Department - When: As needed - Reason: Worsening of condition Followup: dr5 - With: Private Physician - When: 1 - 2 days - Reason: Recheck today's complaints, Continuance of care, Re-evaluation by your physician Discharge Instructions: - Discharge Summary Sheet dr5 - Panic Attack, [id number]-[id number] dr5 - Managing Anxiety, Adult dr5 Forms: - Medication Reconciliation Form dr5 - Patient Portal Instructions dr5 - Leadership Thank You Letter dr5 Prescriptions: - Hydroxyzine HCl 25 mg Oral tablet - take 1 tablet ORAL route every 6 hours As needed; 20 tablet; Refills: 0, dr5 Product Selection Permitted Addendum: 05/15/2024 11:22 I was immediately available for consultation during this patient's visit. I did not e c2 personally see the patient or discuss the patient with the BRADLY. . Signatures: Dispatcher [facility] Vonnie Salmon RN RN iw Peltier, Brian, RN RN bp Nadeem Arnold MD MD ec2 Cam Foley, COMMUNITY DEVELOPMENT OFFICER-C COMMUNITY DEVELOPMENT OFFICER-Cdr5 Mary Landon RN aa5 Corrections: (The following items were deleted from the chart) 05/14 08:03 08:02 Allergies: NKDA; iw iw 08:17 08:17 BASIC METABOLIC PANEL+C.LAB.BRZ ordered. EDMS EDMS 08: 08:17 CBC+H.LAB.BRZ ordered. EDMS EDMS : 08:17 Troponin High Sensitivity+C.LAB.BRZ ordered. EDMS EDMS 08: 08:17 Chest Single View+RAD.RAD.BRZ ordered. EDMS EDMS
--- NOTE | 2024-05-14 09:17 | ER ---
Nurse's Notes [facility] Name: Petrona Kam Age: 33 yrs Sex: Female : 1990 Arrival Date: 05/14/2024 Time: 07:42 Bed 2 Private MD: Diagnosis: Anxiety disorder, unspecified Presentation: 05/14 08:01 Chief complaint: Patient states: has been having bad anxiety and panic attacks for 4-5 iw days, can't keep food down and I have diarrhea , i take lexapro and buspar. Coronavirus screen: At this time, the client does not indicate any symptoms associated with coronavirus-19. Ebola Screen: No symptoms or risks identified at this time. Initial Sepsis Screen: Does the patient meet any 2 criteria? No. Patient's initial sepsis screen is negative. Does the patient have a suspected source of infection? No. Patient's initial sepsis screen is negative. Risk Assessment: Do you want to hurt yourself or someone else? Patient reports no desire to harm self or others. Onset of symptoms was May 09, 2024. 08:01 Method Of Arrival: Ambulatory iw 08:01 Acuity: WENDY 3 iw Historical: - Allergies: 08:02 Hydrocodone-Acetaminophen; iw - PMHx: 08:02 depressive disorder; Anxiety; iw - PSHx: 08:02 section; iw 08:03 Cholecystectomy; iw - Immunization history:: Adult Immunizations not up to date. - Infectious Disease History:: Denies. - Social history:: Smoking status: Patient uses weed vape. Screenin:40 [facility] ED Fall Risk Assessment (Adult) History of falling in the last 3 months, aa5 including since admission No falls in past 3 months (0 pts) Confusion or Disorientation No (0 pts) Intoxicated or Sedated No (0 pts) Impaired Gait No (0 pts) Mobility Assist Device Used No (0 pt) Altered Elimination No (0 pt) Score/Fall Risk Level 0 - 2 = Low Risk Oriented to surroundings, Maintained a safe environment, Educated pt \T\ family on fall prevention, incl call for assistance when getting out of bed, Assessed \T\ reinforced patient's understanding of fall precautions. Abuse screen: Denies threats or abuse. Nutritional screening: No deficits noted. Tuberculosis screening: No symptoms or risk factors identified. Assessment: 08:40 General: Appears uncomfortable, Behavior is cooperative, anxious. Pain: Denies pain. aa5 Neuro: Level of Consciousness is awake, alert, obeys commands, Oriented to person, place, time, situation. Cardiovascular: Reports palpitations, Heart tones S1 S2 present Rhythm is sinus rhythm. Respiratory: Airway is patent Respiratory effort is even, unlabored, Respiratory pattern is regular, symmetrical, Denies cough. GI: Abdomen is round non-distended, Bowel sounds present X 4 quads. Abd is soft and non tender X 4 quads. Reports diarrhea, nausea, vomiting, Decreased appetite. : No signs and/or symptoms were reported regarding the genitourinary system. EENT: No signs and/or symptoms were reported regarding the EENT system. Derm: Skin is pink, warm \T\ dry. Musculoskeletal: Range of motion: intact in all extremities. 09:50 Reassessment: Patient is alert, oriented x 3, equal unlabored respirations, skin aa5 warm/dry/pink. Vital Signs: 08:03 BP 130 / 104; Pulse 96; Resp 16; Temp 98; Pulse Ox 98% on R/A; Weight 102.51 kg; Height iw 5 ft. 7 in. ; Pain 5/10; 09:40 BP 128 / 99; Pulse 88; Resp 16 S; Pulse Ox 100% on R/A; aa5 08:03 Body Mass Index 35.40 (102.51 kg, 170.18 cm) iw 08:03 Pain Scale: Adult iw ED Course: 07:46 Patient arrived in ED. cj3 07:57 Cam Foley F[facility]-C [facility]. dr5 07:57 Nadeem Arnold MD is Attending Physician. dr5 08:02 Triage completed. iw 08:03 Arm band placed on. iw 08:21 Mary Landon, RN is Primary Nurse. aa5 08:27 XRAY Chest (1 view) In Process Unspecified. EDMS 08:40 Patient has correct armband on for positive identification. Bed in low position. Call aa5 light in reach. Side rails up X 1. Client placed on continuous cardiac and pulse oximetry monitoring. NIBP monitoring applied. patient monitor on. Pulse ox on. NIBP on. 08:45 Initial lab(s) drawn, by me, sent to lab. Inserted saline lock: 20 gauge in left aa5 antecubital area, using aseptic technique. Blood collected. Flushed with 10 mL NS. 08:52 No provider procedures requiring assistance completed. Patient maintains SpO2 aa5 saturation greater than 95% on room air. 09:50 IV discontinued, intact, bleeding controlled, No redness/swelling at site. Pressure aa5 dressing applied. Administered Medications: 08:48 Drug: NS 0.9% IV 1000 ml IV at 1000 ml once; to be given as a bolus over 60 minutes bp Route: IV; Rate: 1000 ml; Site: left antecubital; 09:48 Follow up: IV Status: Completed infusion; IV Intake: 1000ml aa5 08:48 Drug: Ativan IVP 0.5 mg IVP once Route: IVP; Site: left antecubital; bp 09:00 Follow up: Response: No adverse reaction aa5 08:48 Drug: hydrOXYzine PO 25 mg PO once Route: PO; bp 09:00 Follow up: Response: No adverse reaction aa5 Medication: 08:52 VIS not applicable for this client. aa5 Intake: 09:48 IV: 1000ml; Total: 1000ml. aa5 Outcome: 09:16 Discharge ordered by . олег 09:50 Discharged to home ambulatory, aa5 09:50 Condition: improved 09:50 Discharge instructions given to patient, Instructed on discharge instructions, follow up and referral plans. medication usage, Demonstrated understanding of instructions, follow-up care, medications, Prescriptions given X 1, 09:53 Patient left the ED. aa5 Signatures: Dispatcher [employer] EDMS Vonnie Martínez RN RN iw Mary Landon RN RN aa5 Vinny Mendoza RN RN bp Rhodes, Dustin, [employer]-C [employer] K[employer]PER-5 Meagan Mora cj3 Corrections: (The following items were deleted from the chart) 08:03 08:02 Allergies: NKDA; iw iw
[2024-05-14 10:18] VITALS: TEMP 98
[2024-05-14 10:19] VITALS: BP 128/99; O2SAT 100
--- NOTE | 2024-05-14 12:00 | EKG ---
Test Date: 2024-05-14 Test Time: 08:10:57 [employer] [facility] Marker: VIKY MEASUREMENT RESULTS: Intervals: Rate: 86 TN: 134 QRSD: 88 QT: 372 QTc: 445 [place]: P: 47 TN: 134 QRS: 60 T: 28 INTERPRETIVE STATEMENTS: Normal sinus rhythm Normal ECG No previous ECG available for comparison Electronically Signed On 05-14-24 11:59:11 CDT by Nirav Francisco
== END 2024-05-14 09:53 | disposition home or self-care (01) ==
LOC: ER 07:42
DX: F41.9 Anxiety disorder, unspecified (principal)
CPT/HCPCS: 36415; 71045; 80048; 84484; 85025; 93005; 96361; 96374; 99285; J7030